=== PATIENT | male | born 1970 | race Caucasian/White ===

== ENCOUNTER 2021-05-24 08:00 | Emergency (ER) | payer OTHER ==
[2021-05-24] MEDS ORDERED: Aspirin Chewable 81 MG TAB ONE (08:15)
[2021-05-24 08:24] LABS: #Basophils 0.3 thou/uL (0.0-0.2); #Eosinphils 0.3 thou/uL (0.0-0.7); #Lymphocytes 2.7 thou/uL (1.20-3.40); #Monocytes 0.7 thou/uL (0.11-0.59); #Neutrophils 6.6 thou/uL (1.40-6.50); %Basophils 2.4 % (0.0-1.0); %Eosinophils 3.3 % (0.0-10.0); %Lymphocytes 25.6 % (21.0-51.0); %Monocytes 6.5 % (0.0-10.0); %Neutrophils 62.2 % (42.0-75.0); Hemoglobin 17.6 g/dL (14.0-18.0); Mean Corpuscular HGB CONC 33.3 g/dL (32.0-36.0); Mean Corpuscular Hemoglobin 31.1 pg (27.0-31.0); Mean Corpuscular Volume 93.3 fL (78.0-98.0); Mean Platelet Volume 6.8 fL (7.4-10.4); Platelet Count 355 thou/uL (130-400); RBC Distribution Width 12.3 % (11.5-14.5); Red Blood Cell (RBC) Count 5.67 mill/uL (4.70-6.10); White Blood Cell (WBC) Count 10.7 thou/uL (4.8-10.8)
[2021-05-24 08:39] LABS: ALT (SGPT) 22 U/L (8-55); AST (SGOT) 22 U/L (5-34); Alkaline Phosphatase 81 U/L (40-110); Anion Gap 15 mmol/L (10-20); BUN (Urea Nitrogen) 17 mg/dL (8.9-20.6); Bilirubin, Total 0.2 mg/dL (0.2-1.2); Calc. Creatinine Clearance 0 mL/min (70-130); Calcium 8.6 mg/dL (7.8-10.44); Carbon Dioxide 23 mmol/L (22-29); Chloride 107 mmol/L (98-107); Globulin 2.9 g/dL (2.4-3.5); Glucose 100 mg/dL (70-105); Lipase 46 U/L (8-78); Potassium 4.4 mmol/L (3.5-5.1); Protein, Total 6.9 g/dL (6.0-8.3); Sodium 141 mmol/L (136-145)
[2021-05-24] MEDS ORDERED: Nitroglycerin 2% Ointment 1 INCH/1 GM Packet ONE (09:05)
[2021-05-24] MEDS ORDERED: Enoxaparin Sodium 40 MG/0.4 ML SYRINGE ONE (09:44)
== END 2021-05-24 10:55 | disposition left against medical advice (07) ==
LOC: BURERS 08:00
DX: I20.0 Unstable angina (principal); I10 Essential (primary) hypertension; I45.10 Unspecified right bundle-branch block; F17.210 Nicotine dependence, cigarettes, uncomplicated
CPT/HCPCS: 71045; 80053; 83690; 84484; 85025; 85379; 93005; 96372; J1650